=== PATIENT | female | born 1960 | race American Indian/Alaskan Native ===

== ENCOUNTER 2017-04-23 09:35 | Emergency (ER) | payer BC ==
[2017-04-23 10:57] LABS: Basophils % (Auto) 0.3 % (0.0-1.8); Eosinophils % (Auto) 1.3 % (0.0-4.3); Hematocrit 43.8 % (30.3-42.9); Hemoglobin 14.6 gm/dl (10.1-14.3); Mean Corpuscular HGB Conc 33 % (30-34); Mean Corpuscular Hemoglobin 32 pg (28-32); Mean Corpuscular Volume 95 fl (79-97); Platelet Count 300 K/mm3 (140-440); Red Cell Distribution Width 13.1 % (13.2-15.2); White Blood Count 7.5 K/mm3 (4.5-11.0)
[2017-04-23 11:20] LABS: Alanine Aminotransferase 11 units/L (7-56); Albumin 3.9 g/dL (3.9-5); Albumin/Globulin Ratio 1.1 %; Alkaline Phosphatase 63 units/L (35-129); Anion Gap 19 mmol/L; BUN/Creatinine Ratio 13; Blood Urea Nitrogen 8 mg/dL (7-17); Calcium 9.3 mg/dL (8.4-10.2); Carbon Dioxide 28 mmol/L (22-30); Chloride 99.2 mmol/L (98-107); Glucose 176 mg/dL (65-100); Lipase 50 units/L (13-60); Potassium 3.6 mmol/L (3.6-5.0); Sodium 143 mmol/L (137-145); Total Protein 7.3 g/dL (6.3-8.2)
--- NOTE | 2017-04-23 12:28 | Cat Scan Report ---
CT ABDOMEN AND PELVIS WITHOUT CONTRAST INDICATION: Left flank pain, WBC in urine. COMPARISON: None similar at this institution. FINDINGS: Noncontrast abdomen and pelvis CT performed. LUNG BASES: Top normal heart size. Nonspecific distal esophageal wall prominence/thickening, not excluded for gastroesophageal reflux and/or hiatal hernia, amongst others. ABDOMEN: Please note that sensitivity to detect small visceral lesions is limited due to the absence of intravenous or oral contrast. Cholecystectomy clips. Right hepatic lobe approximately 19 cm in length. Otherwise grossly unremarkable unenhanced liver, spleen, pancreas, adrenals, aorta, IVC and kidneys. An approximately 3.2 cm left renal cortical cyst inferiorly. No ascites or size significant adenopathy. Nonopacified GI tract evaluation limited, though grossly nonobstructive. Normal appendix. PELVIS: Innumerable pelvic phleboliths limit detection of a small distal ureteral calculus, if present. Grossly normal size uterus with a tiny intrinsic calcification, axial image 304, series 2. Urinary bladder suboptimally distended and assessed. Mild sigmoid diverticulosis. No free fluid or significant adenopathy. Bilateral SI joint sclerosis, axial image 257. Imaged mid to lower thoracic spine degenerative changes also noted. CONCLUSION: 1. No acute CT abnormality on this unenhanced exam. Specifically, no radiopaque intrarenal calculi identified. No hydronephrosis or perinephric stranding. 2. Various incidental findings, including distal esophageal prominence/thickening, cholecystectomy, left lower renal cyst and mild diverticulosis, amongst others, as above. Thank you for the opportunity to participate in this patient's care.
[2017-04-23 16:17] LABS: Bilirubin,Urine NEG (Negative); Blood,Urine NEG (Negative); Ketones,Urine NEG (Negative); Leukocyte Esterase,Urine NEG (Negative); Mucus,Urine 2+ /HPF; Nitrite,Urine NEG (Negative); Protein,Urine <15 mg/dL mg/dL (Negative); Urobilinogen,Urine < 2.0 mg/dL (<2.0)
[2017-04-23 20:25] VITALS: BP 155/100
[2017-04-23] MEDS ORDERED: TYLENOL PO ONE (20:28)
[2017-04-23] MEDS ORDERED: TYLENOL ONE (20:32)
== END 2017-04-23 23:07 | disposition left against medical advice (07) ==
LOC: ED 09:35
DX: R10.30 Lower abdominal pain, unspecified (principal); Z53.21 Procedure and treatment not carried out due to patient leaving prior to being seen by health care provider
CPT/HCPCS: 36415; 74176; 80053; 81001; 83690; 85025

== ENCOUNTER → 2021-05-30 | Outpatient (CLI) | payer BC | END | disposition home or self-care (01) | LOC: SLR 11:00 | DX: G47.30 Sleep apnea, unspecified (principal) | CPT/HCPCS: G0399 ==